=== PATIENT | female | born 1965 | race African-American/Black ===

== ENCOUNTER 2017-05-21 13:41 | Emergency (ER) | payer OTHER | END 2017-05-21 15:16 | disposition left against medical advice (07) | LOC: NED 13:41 | DX: Z53.21 Procedure and treatment not carried out due to patient leaving prior to being seen by health care provider (principal) | CPT/HCPCS: 99281 ==

== ENCOUNTER 2017-06-04 15:03 | Emergency (ER) | payer SELFPAY ==
[~2017-06-04] VITALS: Ht 154.9 cm; Wt 90.0 kg
[2017-06-04 15:58] VITALS: BP 127/81; PULSE 91; RESP 17; TEMP 98.8; O2SAT 100
[2017-06-04 16:18] VITALS: BP 135/85; PULSE 105; RESP 24; O2SAT 100
[2017-06-04] MEDS ORDERED: SODIUM CHLORIDE 0.9% FLUSH 10 ML FLUSH IVF PRN (16:45)
[2017-06-04 17:15] LABS: AUTOMATED NEUTROPHIL # 4.7 TH/MM3 (1.8-7.7); BASOPHIL % 0.3 % (0.0-2.0); EOSINOPHIL # 0.1 TH/MM3 (0-0.4); HEMATOCRIT 33.8 % (35.0-46.0); HEMOGLOBIN 11.7 GM/DL (11.6-15.3); LYMPH % 9.3 % (9.0-44.0); LYMPHOCYTE # 0.5 TH/MM3 (1.0-4.8); MEAN CELL VOLUME 79.1 FL (80.0-100.0); MEAN CORPUSCULAR HEMOGLOBIN 27.3 PG (27.0-34.0); MEAN CORPUSCULAR HGB CONC 34.5 % (32.0-36.0); MEAN PLATELET VOLUME 8.2 FL (7.0-11.0); MONO % 10.2 % (0.0-8.0); MONOCYTE # 0.6 TH/MM3 (0-0.9); NEUT % 79.2 % (16.0-70.0); PLATELET COUNT 304 TH/MM3 (150-450); RED BLOOD COUNT 4.28 MIL/MM3 (4.00-5.30); RED CELL DISTRIBUTION WIDTH 16.9 % (11.6-17.2); WHITE BLOOD COUNT 5.9 TH/MM3 (4.0-11.0)
[2017-06-04 17:21] LABS: INTERNATIONAL NORMALIZED RATIO 1.1 RATIO; PROTHROMBIN TIME - PATIENT 11.2 SEC (9.8-11.6)
[2017-06-04 17:24] LABS: ALBUMIN 3.6 GM/DL (3.4-5.0); ALT (GPT) 14 U/L (10-53); AST (GOT) 10 U/L (15-37); BICARBONATE 25.8 MEQ/L (21.0-32.0); BLOOD UREA NITROGEN 8 MG/DL (7-18); C-REACTIVE PROTEIN LESS THAN 0.29 MG/DL (0.00-0.30); CALCIUM 8.5 MG/DL (8.5-10.1); CREATININE 0.68 MG/DL (0.50-1.00); GLOMERULAR FILTRATION RATE 111 ML/MIN (>89); GLUCOSE,RANDOM 88 MG/DL (74-106)
[2017-06-04 17:28] LABS: ALKALINE PHOSPHATASE 59 U/L (45-117); TOTAL BILIRUBIN ADULT 0.2 MG/DL (0.2-1.0); TOTAL PROTEIN 7.4 GM/DL (6.4-8.2); TROPONIN I LESS THAN 0.02 NG/ML (0.02-0.05)
--- NOTE | 2017-06-04 17:40 | RADRPT ---
EXAM DATE/TIME: 06/04/2017 17:22 [facility] COMPARISON: CT BRAIN W/O CONTRAST, November 12, 2015, 15:44. INDICATIONS : Headache and mandible pain RADIATION DOSE: 40.87 CTDIvol (mGy) MEDICAL HISTORY : Hypertension. SURGICAL HISTORY : Tubal ligation. ENCOUNTER: Initial ACUITY: 1 day PAIN SCALE: 8/10 LOCATION: cranial TECHNIQUE: Multiple contiguous axial images were obtained of the head. Using automated exposure control and adj ustment of the mA and/or kV according to patient size, radiation dose was kept as low as reasonably a chievable to obtain optimal diagnostic quality images. DICOM format image data is available electro nically for review and comparison. FINDINGS: CEREBRUM: The ventricles are normal for age. No evidence of midline shift, mass lesion, hemorrhage or acute in farction. No extra-axial fluid collections are seen. POSTERIOR FOSSA: The cerebellum and brainstem are intact. The 4th ventricle is midline. The cerebellopontine angle i s unremarkable. EXTRACRANIAL: The visualized portion of the orbits is intact. SKULL: The calvaria is intact. No evidence of skull fracture. CONCLUSION: 1. No acute intracranial abnormality identified. Cassius Granados MD on June 04, 2017 at 17:36 Board Certified Radiologist. This report was verified electronically.
--- NOTE | 2017-06-04 17:49 | PD ---
HPI Chief Complaint: Headache Time Seen by Provider: 16:43 Travel History International Travel<30 days: No Contact w/Intl Traveler<30days: No Traveled to known affect area: No History of Present Illness HPI Patient is a 52-year-old female presenting to emergency department for evaluation of headaches. Patient states he started 2 weeks ago, she states that it starts in her right jaw and radiates across her face, down her jaw. She feels pain behind her right ear. Patient states that it hurts to wear her headset at work or where her legs. Symptoms started abruptly, there are no alleviating factors. Patient states that she went to her primary doctor who told her it was stress, she went to a dentist who did an x-ray and told her she had TMJ, she then went to another emergency department and was told that her CAT scan was normal and she had a headache. Patient denies any history of the same. She reports the pain is an 8 out of 10, and shooting and stabbing in nature. She states that yesterday she had nausea, diarrhea but denied any abdominal pain, fevers, chills, neck pain. Those symptoms have now resolved. She reports being healthy with no significant past medical history, she reports that she does follow-up with her primary doctor for routine health care. Patient states that when the headache is at its worse she sees black spots/ floaters. PFSH Past Medical History Medical History: Denies Significant Hx Diminished Hearing: No Hypertension: Yes Inguinal Hernia: Yes (11YRS OLD) Integumentary: Yes (DERMATITIS) Immunizations Current: No ?: Not : 6 Para: 4 Miscarriage: 2 : 0 Tubal Ligation: Yes Past Surgical History Abdominal Surgery: Yes (HERNIA REPAIR A CHILD) Section: Yes (2001) Other Surgery: Yes (HERNIA REPAIR) Social History Alcohol Use: No Tobacco Use: No Substance Use: No Allergies-Medications (Allergen,Severity, Reaction): Coded Allergies: erythromycin base (Unverified Allergy, Severe, Itching, 06/04/17) ketorolac (Unverified Allergy, Severe, RASH, 06/04/17) prochlorperazine (Unverified Allergy, Severe, VOMITING, "HEART FLUUTERS", 06/04/17) promethazine (Unverified Allergy, Severe, HEADACHES/NEURO DEFICITS, ) Reported Meds & Prescriptions Reported Meds & Active Scripts Active Review of Systems Except as stated in HPI: all other systems reviewed are Neg Eyes: Positive: Other (Floaters) HENT: Positive: Headaches, Other (Jaw pain), No: Congestion Cardiovascular: No: Chest Pain or Discomfort Respiratory: No: Shortness of Breath Gastrointestinal: No: Nausea, Vomiting, Abdominal Pain Physical Exam Narrative GENERAL: Well-developed, well-nourished, alert -[place] female. Presenting in no acute distress. SKIN: Warm and dry. HEAD: Atraumatic. Normocephalic. Mild tenderness to right mastoid process. EYES: Pupils equal and round. No scleral icterus. No injection or drainage. ENT: No nasal bleeding or discharge. Mucous membranes pink and moist. NECK: Trachea midline. No JVD. CARDIOVASCULAR: Regular rate and rhythm. RESPIRATORY: No accessory muscle use. Clear to auscultation. Breath sounds equal bilaterally. GASTROINTESTINAL: Abdomen soft, non-tender, nondistended. Hepatic and splenic margins not palpable. MUSCULOSKELETAL: Extremities without clubbing, cyanosis, or edema. No obvious deformities. NEUROLOGICAL: Awake and alert. No obvious cranial nerve deficits. Motor grossly within normal limits. Five out of 5 muscle strength in the arms and legs. Normal speech. PSYCHIATRIC: Appropriate mood and affect; insight and judgment normal. Data Data Last Documented VS Vital Signs Date Time Temp Pulse Resp B/P (MAP) Pulse Ox O2 Delivery O2 Flow Rate FiO2 06/04/17 16:18 105 24 135/85 (102) 100 Room Air 06/04/17 15:58 98.8 Orders Orders Complete Blood Count With Diff (06/04/17 16:44) Comprehensive Metabolic Panel (06/04/17 16:44) C-Reactive Protein (Crp) (06/04/17 16:44) Prothrombin Time / Inr (Pt) (06/04/17 16:44) Act Partial Throm Time (Ptt) (06/04/17 16:44) Ct Brain W/O Iv Contrast(Rout) (06/04/17 16:44) Ecg Monitoring (06/04/17 16:44) Iv Access Insert/Monitor (06/04/17 16:44) Oximetry (06/04/17 16:44) Sodium Chloride 0.9% Flush (Ns Flush) (06/04/17 16:45) Troponin I (06/04/17 16:44) Labs Laboratory Tests Test 06/04/17 16:45 White Blood Count 5.9 TH/MM3 Red Blood Count 4.28 MIL/MM3 Hemoglobin 11.7 GM/DL Hematocrit 33.8 % Mean Corpuscular Volume 79.1 FL Mean Corpuscular Hemoglobin 27.3 PG Mean Corpuscular Hemoglobin Concent 34.5 % Red Cell Distribution Width 16.9 % Platelet Count 304 TH/MM3 Mean Platelet Volume 8.2 FL Neutrophils (%) (Auto) 79.2 % Lymphocytes (%) (Auto) 9.3 % Monocytes (%) (Auto) 10.2 % Eosinophils (%) (Auto) 1.0 % Basophils (%) (Auto) 0.3 % Neutrophils # (Auto) 4.7 TH/MM3 Lymphocytes # (Auto) 0.5 TH/MM3 Monocytes # (Auto) 0.6 TH/MM3 Eosinophils # (Auto) 0.1 TH/MM3 Basophils # (Auto) 0.0 TH/MM3 CBC Comment DIFF FINAL Differential Comment Prothrombin Time 11.2 SEC Prothromb Time International Ratio 1.1 RATIO Activated Partial Thromboplast Time 26.3 SEC Blood Urea Nitrogen 8 MG/DL Creatinine 0.68 MG/DL Random Glucose 88 MG/DL Total Protein 7.4 GM/DL Albumin 3.6 GM/DL Calcium Level 8.5 MG/DL Alkaline Phosphatase 59 U/L Aspartate Amino Transf (AST/SGOT) 10 U/L Alanine Aminotransferase (ALT/SGPT) 14 U/L Total Bilirubin 0.2 MG/DL Sodium Level 139 MEQ/L Potassium Level 3.3 MEQ/L Chloride Level 105 MEQ/L Carbon Dioxide Level 25.8 MEQ/L Anion Gap 8 MEQ/L Estimat Glomerular Filtration Rate 111 ML/MIN Troponin I LESS THAN 0.02 NG/ML C-Reactive Protein LESS THAN 0.29 MG/DL MDM Medical Decision Making Medical Screen Exam Complete: Yes Emergency Medical Condition: Yes Interpretation(s) Vital Signs Date Time Temp Pulse Resp B/P (MAP) Pulse Ox O2 Delivery O2 Flow Rate FiO2 06/04/17 16:18 105 24 135/85 (102) 100 Room Air 06/04/17 15:58 98.8 91 17 127/81 (96) 100 Differential Diagnosis Mastoiditis versus trigeminal neuralgia versus cluster headaches versus migraines versus tension type headaches versus other Narrative Course Patient is a 52-year-old female that presented to the emergency department evaluation of headaches and jaw pain. Patient's vital signs are stable, labs and imaging ordered and pending. CT scan the brain shows no acute abnormality. Mastoid processes are well visualized with no air-fluid levels. CBC with no acute findings, CRP is less than 0.29, chemistry with potassium 3.3 otherwise no acute findings. Patient was seen and evaluated by my attending physician. She will be treated for tension type headache and TMJ. She was already seen by her dentist and diagnosed with TMJ. She was encouraged to continue using her bite guard. She will be given a muscle relaxer, she was also encouraged to take acetaminophen thousand milligrams as needed not exceeding 4 g daily. Patient verbalized understanding of discharge instructions. She was given strict return precautions. She verbalized understanding of instructions. Patient stable for discharge. Diagnosis Primary Impression: Tension-type headache Qualified Codes: G44.209 - Tension-type headache, unspecified, not intractable Additional Impression: TMJ (temporomandibular joint syndrome) Referrals: Primary Care Physician 1 week Patient Instructions: General Instructions, Temporomandibular Disorder (ED), Tension Headache (ED) Additional Instructions: Follow-up with your primary doctor Take medications as needed and as directed Use mouthguard at night to avoid teeth grinding Return to emergency department for any new or worsening symptoms Med/Other Pt SpecificInfo: Prescription(s) given Scripts Cyclobenzaprine (Flexeril) 10 Mg Tab 10 MG PO TID Y for MUSCLE SPASM, #30 TAB 0 Refills Prov: Jeanne Riddle 06/04/17 Disposition: 01 DISCHARGE HOME Condition: Stable Jeanne Riddle Jun 04, 2017 17:49
[2017-06-04 18:09] LABS: CHLORIDE 105 MEQ/L (98-107); SODIUM (NA) 139 MEQ/L (136-145)
[2017-06-04] MEDS ORDERED: CYCL10TA PO (18:38)
== END 2017-06-04 19:37 | disposition home or self-care (01) ==
LOC: NEPE 15:03
DX: G44.209 Tension-type headache, unspecified, not intractable (principal); M26.609 Unspecified temporomandibular joint disorder, unspecified side; R68.84 Jaw pain; I10 Essential (primary) hypertension; H43.399 Other vitreous opacities, unspecified eye
CPT/HCPCS: 70450; 80053; 84484; 85025; 85610; 85730; 86140

== ENCOUNTER 2017-06-30 16:23 | Emergency (ER) | payer SELFPAY ==
[~2017-06-30] VITALS: Ht 154.9 cm; Wt 84.1 kg
[~2017-06-30 16:23] MED LIST: CYCL10TA PO
[2017-06-30 17:09] VITALS: BP 158/89; PULSE 83; RESP 18; TEMP 98.5; O2SAT 100
[2017-06-30] MEDS ORDERED: IBUP200T47 PO (17:28)
--- NOTE | 2017-06-30 17:31 | PD ---
HPI Chief Complaint: Pain: Acute or Chronic Time Seen by Provider: 17:20 Travel History International Travel<30 days: No Contact w/Intl Traveler<30days: No Traveled to known affect area: No History of Present Illness HPI 52-year-old -Beninese female presents emergency department with sudden onset right arm pain while laying on her bed at home. Patient states she just got her computer out was doing some typing, when her came home and they were talking on the bed, when she had sudden onset pain in the right arm. She describes the pain as sharp and radiating. She denies neck or shoulder pain. She now feels that her right arm is weak. Patient denies numbness however. She denies shortness of breath or chest pain. No difficulty swallowing. No other focal abnormalities are noted. Pain is now 8 out of 10. Patient states she did take some Advil but it did not improve. She does however state her pain improved while in the waiting room somewhat. Patient is allergic to erythromycin, ketorolac, prochlorperazine, and promethazine [facility] Past Medical History Diminished Hearing: No Hypertension: Yes Inguinal Hernia: Yes (11YRS OLD) Integumentary: Yes (DERMATITIS) Immunizations Current: No : 6 Para: 4 Miscarriage: 2 : 0 Tubal Ligation: Yes Past Surgical History Abdominal Surgery: Yes (HERNIA REPAIR A CHILD) Section: Yes (2001) Other Surgery: Yes (HERNIA REPAIR) Social History Alcohol Use: No Tobacco Use: No Substance Use: No Allergies-Medications (Allergen,Severity, Reaction): Coded Allergies: erythromycin base (Unverified Allergy, Severe, Itching, 06/04/17) ketorolac (Unverified Allergy, Severe, RASH, 06/04/17) prochlorperazine (Unverified Allergy, Severe, VOMITING, "HEART FLUUTERS", 06/04/17) promethazine (Unverified Allergy, Severe, HEADACHES/NEURO DEFICITS, ) Reported Meds & Prescriptions Reported Meds & Active Scripts Active Tramadol (Tramadol HCl) 50 Mg Tab 50 Mg PO Q6H PRN Prednisone (21) 10 mg tab Dose Pack (Prednisone) 10 Mg Pack 10 Mg PO DIRECTED Reported Ibuprofen 200 Mg Tab 200 Mg PO Q4H PRN Review of Systems Except as stated in HPI: all other systems reviewed are Neg General / Constitutional: No: Fever Eyes: No: Visual changes HENT: No: Headaches Cardiovascular: No: Chest Pain or Discomfort Respiratory: No: Shortness of Breath Gastrointestinal: No: Abdominal Pain Genitourinary: No: Dysuria Musculoskeletal: Positive: Myalgias, Arthralgias, Limited ROM, Weakness, Pain Skin: No Rash Neurologic: No: Weakness Psychiatric: No: Depression Endocrine: No: Polydipsia Hematologic/Lymphatic: No: Easy Bruising Physical Exam Narrative GENERAL: Patient appears in no obvious distress. SKIN: Warm and dry. Normal color. Normal turgor. No rash HEAD: Atraumatic. Normocephalic. EYES: Pupils equal and round. No scleral icterus. No injection or drainage. ENT: No nasal bleeding or discharge. Mucous membranes pink and moist. Pharynx is clear. Airways patent NECK: Trachea midline. Supple and nontender without bony tenderness or step- off. Range of motion is full without tenderness. CARDIOVASCULAR: Regular rate and rhythm. No murmurs gallops or rubs. RESPIRATORY: No accessory muscle use. Clear to auscultation. Breath sounds equal bilaterally. MUSCULOSKELETAL: Extremities without clubbing, cyanosis, or edema. No obvious deformities. No swelling of the right hand is noted. Patient has positive Tinel sign at the carpal tunnel, but no increased tenderness with palpation of the ulnar notch. Range of motion is intact. 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 Neurovascular exam seems normal. NEUROLOGICAL: Awake and alert. No obvious cranial nerve deficits. Motor grossly within normal limits. Five out of 5 muscle strength in the arms and legs. Normal speech. PSYCHIATRIC: Appropriate mood and affect; insight and judgment normal. Data Data Last Documented VS Vital Signs Date Time Temp Pulse Resp B/P (MAP) Pulse Ox O2 Delivery O2 Flow Rate FiO2 06/30/17 17:09 98.5 83 18 158/89 (112) 100 Orders Orders Us Arm Venous Doppler (06/30/17 17:27) Prednisone (Deltasone) (06/30/17 19:15) Splint Or Brace Apply/Monitor (06/30/17 19:05) Ed Discharge Order (06/30/17 19:10) Cockup Hand Splint (06/30/17 ) [facility] Medical Decision Making Medical Screen Exam Complete: Yes Emergency Medical Condition: Yes Differential Diagnosis Acute right arm pain. Possible DVT. Carpal tunnel. Cervical radiculopathy. Narrative Course Patient appears medically stable at time of exam. Ultrasound of the right arm is ordered to rule out DVT. Ultrasound is negative for DVT. Patient is felt to have neuralgia and possibly carpal tunnel. Patient is placed in a cockup Velcro wrist splint. Patient is given prednisone 40 mg p.o. now. Patient continued on prednisone taper as directed. Patient is given tramadol 50 mg 1 every 6 hours as needed pain #12. Patient is to wear the carpal tunnel splint at all times until seen by her primary care physician. Patient can return if symptoms worsen as needed per Diagnosis Primary Impression: Acute carpal tunnel syndrome of right wrist Referrals: Primary Care Physician Patient Instructions: General Instructions Additional Instructions: Ultrasound is negative for DVT. Patient is felt to have neuralgia and possibly carpal tunnel. Patient is placed in a cockup Velcro wrist splint. Patient is given prednisone 40 mg p.o. now. Patient continued on prednisone taper as directed. Patient is given tramadol 50 mg 1 every 6 hours as needed pain #12. Patient is to wear the carpal tunnel splint at all times until seen by her primary care physician. Patient can return if symptoms worsen as needed per Med/Other Pt SpecificInfo: Prescription(s) given Scripts Tramadol (Tramadol) 50 Mg Tab 50 MG PO Q6H Y for PAIN, #12 TAB 0 Refills Prov: Marimar Pascual MD 06/30/17 Prednisone (21) 10 mg tab Dose Pack (Prednisone (21) 10 mg tab Dose Pack) 10 Mg Pack 10 MG PO DIRECTED for Inflammation, #1 DSPK 0 Refills Prov: Marimar Pascual MD 06/30/17 Disposition: 01 DISCHARGE HOME Condition: Stable Gurpreet Lay Jun 30, 2017 17:31
--- NOTE | 2017-06-30 18:55 | RADRPT ---
EXAM DATE/TIME: 06/30/2017 18:13 [facility] COMPARISON: No previous studies available for comparison. INDICATIONS : Right arm pain. MEDICAL HISTORY : Hypertension. Inguinal hernia. Dermatitis. SURGICAL HISTORY : Tubal ligation. section. Hernia repair. ENCOUNTER: Initial ACUITY: 4 - 6 days PAIN SCORE: 3/10 LOCATION: Right arm. FINDINGS: There is spontaneous flow documented in the brachial, basilic, cephalic, axillary, and subclavian vei ns. The vessels are compressible and augmentation response is documented. No filling defects are se en. The flow is phasic with respiration. Direction of flow in the jugular vein is caudal. CONCLUSION: Normal examination. Calvin Thomason MD on June 30, 2017 at 18:52 Board Certified Radiologist. This report was verified electronically.
[2017-06-30] MEDS ORDERED: TRAM50TA PO (19:05)
[2017-06-30] MEDS ORDERED: PRED10PA PO (19:05)
[2017-06-30] MEDS ORDERED: predniSONE 20 MG TAB PO ONE (19:15)
== END 2017-06-30 20:24 | disposition home or self-care (01) ==
LOC: NEPK 16:23
DX: G56.01 Carpal tunnel syndrome, right upper limb (principal)
CPT/HCPCS: 93971; 99284; J7512; L3908

== ENCOUNTER 2017-07-23 15:27 | Emergency (ER) | payer SELFPAY ==
[~2017-07-23] VITALS: Ht 154.9 cm; Wt 75.0 kg
[~2017-07-23 15:27] MED LIST changes: -CYCL10TA PO; +IBUP200T47 PO; +PRED10PA PO; +TRAM50TA PO
[2017-07-23 15:33] VITALS: BP 156/96; PULSE 84; RESP 18; TEMP 98.9; O2SAT 100
[2017-07-23 15:41] VITALS: BP 138/78; PULSE 82; RESP 18; O2SAT 100
--- NOTE | 2017-07-23 16:15 | PD ---
HPI Chief Complaint: Hypertension Time Seen by Provider: 15:41 Travel History International Travel<30 days: No Contact w/Intl Traveler<30days: No Traveled to known affect area: No History of Present Illness HPI The patient is a 52-year-old -[place]kin[place] female who presents to the emergency department for intermittent headache and hypertension. 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 The patient has been under stress recently, complains of intermittent headaches, bilateral temporal, throbbing, associated with neck tightness. She also notes occasional elevated blood pressure with a systolic in the 150s and 160s. She denies any history of hypertension or migraines. She denies any blurry vision or photophobia. She denies any chest pain, shortness of breath, nausea, vomiting, or focal deficits. Upon arrival the patient's symptoms have significantly improved. PFSH Past Medical History Cardiovascular Problems: Yes Diminished Hearing: No Hypertension: Yes Inguinal Hernia: Yes (11YRS OLD) Integumentary: Yes (DERMATITIS) Immunizations Current: No Tetanus Vaccination: < 5 Years Influenza Vaccination: No ?: Not LMP: NOW : 6 Para: 4 Miscarriage: 2 : 0 Tubal Ligation: Yes Past Surgical History Abdominal Surgery: Yes (HERNIA REPAIR A CHILD) Section: Yes (2001) Other Surgery: Yes (HERNIA REPAIR) Social History Alcohol Use: No Tobacco Use: No Substance Use: No Allergies-Medications (Allergen,Severity, Reaction): Coded Allergies: erythromycin base (Unverified Allergy, Severe, Itching, 06/04/17) ketorolac (Unverified Allergy, Severe, RASH, 06/04/17) prochlorperazine (Unverified Allergy, Severe, VOMITING, "HEART FLUUTERS", 06/04/17) promethazine (Unverified Allergy, Severe, HEADACHES/NEURO DEFICITS, ) Reported Meds & Prescriptions Reported Meds & Active Scripts Active Reported Ibuprofen 200 Mg Tab 200 Mg PO Q4H PRN Review of Systems Except as stated in HPI: all other systems reviewed are Neg Eyes: No: Blurred Vision, Photophobia HENT: Positive: Headaches, Neck Pain, No: Lightheadedness Cardiovascular: No: Chest Pain or Discomfort Respiratory: No: Shortness of Breath Gastrointestinal: No: Nausea, Vomiting, Abdominal Pain Musculoskeletal: No: Weakness Neurologic: Positive: Headache, No: Dizziness, Focal Abnormalities, Change in Mentation, Paresthesia, Sensory Disturbance Physical Exam Narrative GENERAL: Awake, alert, pleasant 52-year-old female who appears her stated age and is in no acute respiratory distress. SKIN: Focused skin assessment warm/dry. HEAD: Atraumatic. Normocephalic. EYES: Pupils equal and round. Pupils are 3 mm bilateral and reactive. ENT: No nasal bleeding or discharge. Mucous membranes pink and moist. NECK: Trachea midline. No JVD. MUSCULOSKELETAL: No obvious deformities. No clubbing. No cyanosis. No edema. NEUROLOGICAL: Awake and alert. No obvious cranial nerve deficits. Motor grossly within normal limits. Normal speech. Nonfocal. Oriented x4. PSYCHIATRIC: Appropriate mood and affect; insight and judgment normal. Data Data Last Documented VS Vital Signs Date Time Temp Pulse Resp B/P (MAP) Pulse Ox O2 Delivery O2 Flow Rate FiO2 07/23/17 15:41 82 18 138/78 (98) 100 07/23/17 15:35 Room Air 07/23/17 15:33 98.9 Orders Orders Ed Discharge Order (07/23/17 16:11) MDM Medical Decision Making Medical Screen Exam Complete: Yes Emergency Medical Condition: Yes Medical Record Reviewed: Yes Differential Diagnosis Differential diagnosis includes tension headache, migraine, hypertension, hypertensive urgency, hypertensive emergency, intracranial hemorrhage. Narrative Course I had a discussion with the patient at bedside regarding tension headache versus hypertension versus hypertensive urgency/emergency. The patient's blood pressure came down to 125/78 without medications. I reviewed the EMR she had a negative CT performed on June 04, 2017 which was negative. The patient does think she is under stress, states ibuprofen normally improves her headaches. She requests no medications at this time. I did advise her to follow-up with a primary physician in regards to continuing management of possible stress induced tension headaches and possible early hypertension. The patient agrees and understands. She is stable for outpatient follow-up. Diagnosis Primary Impression: Tension headache Patient Instructions: General Instructions, Acute Headache (ED) Departure Forms: Tests/Procedures Med/Other Pt SpecificInfo: No Change to Meds Disposition: 01 DISCHARGE HOME Condition: Stable Erasmo Reynolds MD July 23, 2017 16:15
== END 2017-07-23 16:20 | disposition home or self-care (01) ==
LOC: NEPD 15:27
DX: G44.209 Tension-type headache, unspecified, not intractable (principal)
CPT/HCPCS: 99281

== ENCOUNTER 2017-09-12 10:25 | Emergency (ER) | payer SELFPAY ==
[~2017-09-12] VITALS: Ht 154.9 cm; Wt 72.5 kg
[~2017-09-12 10:25] MED LIST changes: -PRED10PA PO; -TRAM50TA PO
[2017-09-12 10:39] VITALS: BP 149/81; PULSE 87; RESP 16; TEMP 98.6
== END 2017-09-12 11:53 | disposition left against medical advice (07) ==
LOC: NEPD 10:25
DX: R51 Headache (principal)
CPT/HCPCS: 99281